=== PATIENT | male | born 1945 | race Caucasian/White ===

== ENCOUNTER → 2024-02-01 | Outpatient (CLI) | payer OTHER, SELFPAY ==
--- NOTE | 2024-02-01 14:57 | XR_ITS ---
Examination: PA lateral chest 2 views TECHNIQUE: Upright PA lateral chest 2 views Exam date and time: February 01, 2024 at 1502 hours Comparison May 24, 2013 INDICATIONS: Coughing beginning 2 months ago. FINDINGS: Scattered areas of parenchymal disease at the lung bases Normal heart size Blunting of the costophrenic angles Also parenchymal disease, minor in the right upper lobe IMPRESSION: Bilateral parenchymal disease primarily bibasilar most consistent with pneumonia Follow-up chest imaging recommended to document clearing
[2024-02-01 15:58] LABS: Basophils % (Auto) 0 % (0-2.5); Eosinophils # (Auto) 0.5 Thou/mm3 (0.0-0.5); Eosinophils % (Auto) 4 % (0-10); Hematocrit 34.5 % (41.0-53.0); Hemoglobin 11.1 g/dL (13.5-16.0); Immature Granulocytes % (Auto) 0 % (0-0); Immature Granulocytes Auto 0.04 Thou/mm3 (0.00-0.00); Lymphocytes % (Auto) 16 % (10-50); Mean Corpuscular HGB Conc 32.2 g/dl (31.0-37.0); Mean Corpuscular Hemoglobin 28.9 pg (25.0-35.0); Mean Corpuscular Volume 90 fL (80-100); Monocytes # (Auto) 1.2 Thou/mm3 (0.0-0.8); Monocytes % (Auto) 10 % (0-12); Neutrophils # (Auto) 8.8 Thou/mm3 (1.8-7.7); Neutrophils % (Auto) 70 % (37-80); Nucleated Red Blood Cell % 0 /100 WBC (0); Platelet Count 342 Thou/mm3 (140-440); RDW Standard Deviation 43.9 fL (35.1-43.9); Red Blood Count 3.84 Miln/mm3 (4.50-5.90); White Blood Count 12.6 Thou/mm3 (3.8-10.6)
== END | disposition home or self-care (01) ==
LOC: CDIM 14:45 → COPL 15:08
PROVIDERS: Referring Provider Family Medicine; Visit Provider Family Medicine
DX: J20.9 Acute bronchitis, unspecified (principal); D50.9 Iron deficiency anemia, unspecified
CPT/HCPCS: 36415; 71046; 85025

== ENCOUNTER → 2024-02-10 | Outpatient (CLI) | payer OTHER, SELFPAY ==
[2024-02-10 16:14] LABS: Basophils # (Auto) 0.1 Thou/mm3 (0.0-0.2); Basophils % (Auto) 0 % (0-2.5); Eosinophils # (Auto) 0.6 Thou/mm3 (0.0-0.5); Eosinophils % (Auto) 5 % (0-10); Hematocrit 35.8 % (41.0-53.0); Hemoglobin 11.5 g/dL (13.5-16.0); Immature Granulocytes % (Auto) 1 % (0-0); Immature Granulocytes Auto 0.09 Thou/mm3 (0.00-0.00); Lymphocytes # (Auto) 2.9 Thou/mm3 (1.0-4.8); Lymphocytes % (Auto) 22 % (10-50); Mean Corpuscular HGB Conc 32.1 g/dl (31.0-37.0); Mean Corpuscular Hemoglobin 28.5 pg (25.0-35.0); Mean Corpuscular Volume 89 fL (80-100); Monocytes % (Auto) 8 % (0-12); Neutrophils # (Auto) 8.5 Thou/mm3 (1.8-7.7); Neutrophils % (Auto) 64 % (37-80); Nucleated Red Blood Cell % 0 /100 WBC (0); Platelet Count 427 Thou/mm3 (140-440); RDW Standard Deviation 43.8 fL (35.1-43.9); Red Blood Count 4.03 Miln/mm3 (4.50-5.90); White Blood Count 13.2 Thou/mm3 (3.8-10.6)
== END | disposition home or self-care (01) ==
LOC: COPL 15:03
PROVIDERS: PCP Family Medicine; Referring Provider Family Medicine; Visit Provider Family Medicine
DX: J18.9 Pneumonia, unspecified organism (principal)
CPT/HCPCS: 36415; 85025

== ENCOUNTER → 2024-03-20 | Outpatient (CLI) | payer OTHER, SELFPAY ==
--- NOTE | 2024-03-20 12:39 | XR_ITS ---
Examination: PA lateral chest 2 views TECHNIQUE: Upright PA lateral chest 2 views Exam date and time: March 20, 2024 1334 hours INDICATIONS: Shortness of breath beginning 2 months ago. FINDINGS: COPD with moderate hyperexpansion Extensive interstitial disease throughout the lungs consistent with pneumonia, pulmonary fibrosis, clinical correlation advised Normal heart size IMPRESSION: Extensive interstitial disease again noted throughout the lungs, consistent with pneumonia or possibly pulmonary fibrosis Recommend high-resolution CT chest without contrast follow-up
== END | disposition home or self-care (01) ==
PROVIDERS: PCP Registered Nurse; Referring Provider Registered Nurse; Visit Provider Registered Nurse
DX: R91.8 Other nonspecific abnormal finding of lung field (principal)
CPT/HCPCS: 71046

== ENCOUNTER → 2024-03-24 | Outpatient (CLI) | payer OTHER, SELFPAY ==
--- NOTE | 2024-03-24 10:54 | XR_ITS ---
Examination: CT chest, without intravenous contrast. Sagittal and coronal 2-D reconstructions. Exam date and time: March 24, 2024 1114 hours INDICATIONS: Shortness of breath beginning one month ago, chest x-ray March 20, 2024 interstitial disease throughout the lungs CTDI:vol (mGy) 14.1 DLP: (mGycm) 448 Technique: Multiple 3.0 mm axial sections of the chest to been obtained. Bone and lung density settings are obtained. Sagittal and coronal 2-D reconstructions have been obtained. Low dose protocols were performed. One or more of the following dose reduction techniques were used; automated exposure control, adjustment of the mA and/or KV according to patient size, use of iterative reconstruction technique. Findings: Thoracic aortic calcification AP dimension ascending thoracic aorta 3.7 cm Pulmonary artery segments are not enlarged No paratracheal tracheobronchial or bronchopulmonary adenopathy Moderate to severe bilateral pulmonary fibrosis Multiple bilateral pulmonary nodules ranging in size from 2 to 14 mm No pneumonic infiltrates Mild enlargement cardiac contour No visualized liver or splenic lesion IMPRESSION: Moderate to severe bilateral pulmonary fibrosis Multiple bilateral pulmonary nodules ranging in size from 2 to 14 mm, with this study as baseline recommend 6 month follow-up CT chest without contrast
== END | disposition home or self-care (01) ==
PROVIDERS: PCP Family Medicine; Referring Provider Registered Nurse; Visit Provider Registered Nurse
DX: J84.10 Pulmonary fibrosis, unspecified (principal); R91.8 Other nonspecific abnormal finding of lung field
CPT/HCPCS: 71250

== ENCOUNTER → 2024-04-19 | Outpatient (CLI) | payer OTHER, SELFPAY ==
[2024-04-19 18:22] LABS: Amphetamine/Methamp Scrn,U Negative (Negative); Barbiturate Screen,Urine Negative (Negative); Benzodiazepines Screen,Urine Negative (Negative); Benzoylecgonine Screen, Ur Negative (Negative); Fentanyl Screen,Urine Negative (Negative); Opiate Screen,Urine Positive (Negative); THC Screen,Urine Negative (Negative)
== END | disposition home or self-care (01) ==
LOC: SLDO 17:16
PROVIDERS: PCP Registered Nurse; Referring Provider Registered Nurse; Visit Provider Registered Nurse
DX: Z79.891 Long term (current) use of opiate analgesic (principal)
CPT/HCPCS: 80307

== ENCOUNTER → 2024-07-06 | Outpatient (CLI) | payer OTHER, SELFPAY ==
--- NOTE | 2024-07-06 09:18 | XR_ITS ---
Examination: PA lateral chest 2 views TECHNIQUE: Upright PA lateral chest 2 views Exam date and time: July 06, 2024 1055 hours Comparison March 20, 2024 INDICATIONS: Difficulty breathing shortness of breath beginning January 2024. FINDINGS: Bilateral extensive interstitial disease again noted, consistent with pulmonary fibrosis Consider superimposed pneumonia left base Normal heart size IMPRESSION: Bilateral pulmonary fibrosis Superimposed pneumonia left base
== END | disposition home or self-care (01) ==
PROVIDERS: PCP Registered Nurse; Referring Provider Specialist; Visit Provider Specialist
DX: J84.10 Pulmonary fibrosis, unspecified (principal); J18.9 Pneumonia, unspecified organism
CPT/HCPCS: 71046

== ENCOUNTER → 2024-08-15 | Outpatient (CLI) | payer OTHER, SELFPAY ==
[2024-08-15 07:37] VITALS: PULSE 63; RESP 20; O2SAT 97
[2024-08-15 07:57] VITALS: PULSE 65; RESP 18; O2SAT 100
[2024-08-15 08:00] VITALS: PULSE 63
[2024-08-15] MEDS: ALBUTEROL RT 2.5 MG/0.5 ML NEBU INH (08:00)
== END | disposition home or self-care (01) ==
LOC: SRTX 07:00
PROVIDERS: PCP Registered Nurse; Referring Provider Specialist; Visit Provider Specialist
DX: R06.02 Shortness of breath (principal)
CPT/HCPCS: 94060; 94640; 94726; 94729

== ENCOUNTER → 2024-09-14 | Outpatient (CLI) | payer OTHER, SELFPAY ==
--- NOTE | 2024-09-14 08:30 | XR_ITS ---
Examination: CT chest, without intravenous contrast. Sagittal and coronal 2-D reconstructions. Exam date and time: September 14, 2024 0856 hours Comparison March 24, 2024 INDICATIONS: Multiple pulmonary nodules on CT chest March 24, 2024 CTDI:vol (mGy) 11.2 DLP: (mGycm) 402 Technique: Multiple 3.0 mm axial sections of the chest to been obtained. Bone and lung density settings are obtained. Sagittal and coronal 2-D reconstructions have been obtained. Low dose protocols were performed. One or more of the following dose reduction techniques were used; automated exposure control, adjustment of the mA and/or KV according to patient size, use of iterative reconstruction technique. Findings: No thoracic aortic aneurysmal dilatation Pulmonary artery segments are not enlarged. No pathologic lymphadenopathy. COPD with extensive bilateral airspace destruction and scarring throughout the lungs as well as dilated bronchi in the lower lung zones. There are multiple additional pulmonary nodules, at least 30 on the current examination compared to 18 on the prior study which may be more of function of technique Enlarging nodules compared with the prior study are not clearly identified No interval pneumonia No focal liver or splenic lesions Cholelithiasis IMPRESSION: More numerous subcentimeter pulmonary nodules on the current study, suggest continued 6 month follow-up CT chest without contrast
== END | disposition home or self-care (01) ==
PROVIDERS: Referring Provider Specialist; Visit Provider Specialist
DX: R91.8 Other nonspecific abnormal finding of lung field (principal)
CPT/HCPCS: 71250

== ENCOUNTER → 2024-09-28 | Outpatient (CLI) | payer OTHER, SELFPAY ==
[2024-09-28 16:31] LABS: Glucose Estimated Average 123 mg/dL (80-131); Hemoglobin A1C 5.9 % Hgb (4.8-6.0)
== END | disposition home or self-care (01) ==
PROVIDERS: PCP Family Medicine; Referring Provider Psychiatry & Neurology Neurology; Visit Provider Psychiatry & Neurology Neurology
DX: R20.2 Paresthesia of skin (principal)
CPT/HCPCS: 36415; 83036

== ENCOUNTER → 2024-10-17 | Outpatient (CLI) | payer OTHER, SELFPAY ==
[2024-10-17 08:11] LABS: Collection Type, Urine Clean Catch; Squamous Epithelial Cell,Urine 0 /hpf (0-5)
[2024-10-17 08:50] LABS: Basophils # (Auto) 0.0 Thou/mm3 (0.0-0.2); Basophils % (Auto) 0 % (0-2.5); Eosinophils # (Auto) 0.4 Thou/mm3 (0.0-0.5); Eosinophils % (Auto) 3 % (0-10); Hematocrit 36.6 % (41.0-53.0); Hemoglobin 12.0 g/dL (13.5-16.0); Immature Granulocytes Auto 0.04 Thou/mm3 (0.00-0.00); Lymphocytes # (Auto) 3.1 Thou/mm3 (1.0-4.8); Lymphocytes % (Auto) 29 % (10-50); Mean Corpuscular HGB Conc 32.8 g/dl (31.0-37.0); Mean Corpuscular Hemoglobin 30.5 pg (25.0-35.0); Mean Corpuscular Volume 93 fL (80-100); Monocytes # (Auto) 1.1 Thou/mm3 (0.0-0.8); Monocytes % (Auto) 10 % (0-12); Neutrophils # (Auto) 6.1 Thou/mm3 (1.8-7.7); Neutrophils % (Auto) 57 % (37-80); Nucleated Red Blood Cell # 0.00 Thou/mm3 (0.00-0.00); Nucleated Red Blood Cell % 0 /100 WBC (0); Platelet Count 274 Thou/mm3 (140-440); RDW Standard Deviation 47.8 fL (35.1-43.9); Red Blood Count 3.93 Miln/mm3 (4.50-5.90); White Blood Count 10.7 Thou/mm3 (3.8-10.6)
[2024-10-17 08:56] LABS: Bilirubin,Urine Negative (Negative); Blood,Urine Negative (Negative); Clarity,Urine Clear (Clear/Hazy); Color,Urine Yellow (Lt Yel-Yel); Culture Indicated,Urine Not Indicated; Glucose, Urine Negative (Negative); Ketones,Urine Negative (Negative); Leukocyte Esterase,Urine Negative (Negative); Nitrite,Urine Negative (Negative); PH,Urine 6.0 (5.0-7.0); Protein,Urine Trace (Neg - Trace); RBC,Urine < 1 /hpf (0-3); Specific Gravity,Urine 1.031 (1.001-1.035); Urobilinogen,Urine Negative mg/dL (0.0-1.0); WBC,Urine 1 /hpf (0-5)
[2024-10-17 08:58] LABS: Alanine Aminotransferase 12 U/L (10-49); Albumin, Serum 3.8 gm/dL (3.4-4.8); Albumin/Globulin Ratio 1.6 (1.2-2.2); Alkaline Phosphatase 65 U/L (46-116); Anion Gap 10 (7-16); Aspartate Amino Transferase 15 U/L (0-34); BUN/Creatinine Ratio 15 Ratio (12-20); Bilirubin,Total 0.3 mg/dL (0.3-1.2); Blood Urea Nitrogen 17 mg/dL (9-23); Calcium 8.9 mg/dL (8.3-10.6); Calcium (Corrected) 9.1 mg/dL (8.5-10.1); Carbon Dioxide 28.0 mMol/L (20.0-31.0); Cardiac Risk Estimate 3.3 RATIO (4.0-6.7); Chloride 108 mMol/L (98-107); Cholesterol 163 mg/dL (132-200); Creatinine (Component) 1.1 mg/dL (0.6-1.3); Globulin 2.4 gm/dL (2.3-3.5); Glucose 103 mg/dL (74-106); HDL Cholesterol 50 mg/dL (40-60); LDL Cholesterol,Calculated 90 mg/dL (0-130); Osmolality,Calculated 292 (275-295); Potassium 4.0 mMol/L (3.4-5.1); Sodium 146 mMol/L (136-145); Total Protein 6.2 gm/dL (5.7-8.2); Triglycerides 113 mg/dL (30-150); eGFR > 60 See Note
[2024-10-17 09:01] LABS: Prostate Specific Antigen 3.86 ng/mL (0-4.00)
[2024-10-17 09:04] LABS: Vitamin D 25 Hydroxy Total 40.0 ng/mL (7.3-40.2)
== END | disposition home or self-care (01) ==
LOC: COPL 07:13
PROVIDERS: PCP Family Medicine; Referring Provider Registered Nurse; Visit Provider Registered Nurse
DX: Z00.00 Encounter for general adult medical examination without abnormal findings (principal); E78.2 Mixed hyperlipidemia; N40.1 Benign prostatic hyperplasia with lower urinary tract symptoms; R73.9 Hyperglycemia, unspecified
CPT/HCPCS: 36415; 80053; 80061; 81001; 82306; 84153; 85025

== ENCOUNTER → 2024-10-18 | Outpatient (CLI) | payer OTHER, SELFPAY ==
--- NOTE | 2024-10-18 09:30 | XR_ITS ---
Examination: MRI cervical spine without intravenous contrast Date and time of exam: October 18, 2024 1106 hours INDICATIONS: Neck pain 9 months getting worse with numbness in the arms Technique: Multiple axial and sagittal sections of the cervical spine to been obtained. T2 weighted sagittal sections, TR 3, 270, TE 117 T1-weighted sagittal sections, TR 500, TE 11 T1-weighted axial sections, TR 607, TE 12, axial sections TR 18, TE 27 and T2 weighted transverse sections, TR 3920, TE 122. Findings: Retrograde displacement C5 relative to C6 4 mm No cervical fracture Diffuse cervical disc desiccation Advanced disc narrowing C5-C6 Moderate disc narrowing C6-C7 Diffuse cervical disc desiccation Minimal anterolisthesis C7 on T1 No localized enlargement cervical cord Atrophic changes involving the odontoid C2-C3 no disc protrusion C3-C4 advanced left neural foraminal stenosis C4-C5 advanced bilateral neural foraminal stenosis C5-C6 severe spinal stenosis, axial image 10, 6 mm osteophyte disc complex central paracentral severely indenting the cervical cord with advanced bilateral neural foraminal stenosis C6-C7 3 mm central subarticular osteophyte disc complex indenting the ventral margin cervical cord advanced bilateral neural foraminal stenosis C7-T1 no disc protrusion IMPRESSION: C5-C6 severe overall spinal stenosis including advanced bilateral neural foraminal stenosis C6-C7 moderate to severe overall spinal stenosis as above
== END | disposition home or self-care (01) ==
LOC: SMRI 09:25
PROVIDERS: PCP Family Medicine; Referring Provider Psychiatry & Neurology Neurology; Visit Provider Psychiatry & Neurology Neurology
DX: M48.02 Spinal stenosis, cervical region (principal)
CPT/HCPCS: 72141

== ENCOUNTER → 2024-11-20 | Outpatient (CLI) | payer OTHER, SELFPAY ==
--- NOTE | 2024-11-20 12:12 | XR_ITS ---
Examination:Left hip AP, lateral, AP pelvis 3 views Technique: Hip AP lateral, AP pelvis, 3 views Exam date and time:November 18, 2024 1211 hours INDICATIONS: Left hip pain beginning 3 months ago. FINDINGS: Severe narrowing left hip joint No hip fracture or dislocation Right hip hemiarthroplasty with satisfactory alignment IMPRESSION: Severe left hip osteoarthritis.
--- NOTE | 2024-11-20 12:12 | XR_ITS ---
Examination: Left knee 2 views TECHNIQUE: AP lateral left knee 2 views Date and time: November 20, 2024, 1227 hours INDICATIONS: Left knee pain beginning 3 months ago. FINDINGS: Mild to moderate tricompartment osteoarthritis No fracture or dislocation Prominent osteopenia IMPRESSION: Mild to moderate tricompartment osteoarthritis
== END | disposition home or self-care (01) ==
PROVIDERS: PCP Registered Nurse; Referring Provider Registered Nurse; Visit Provider Registered Nurse
DX: M16.12 Unilateral primary osteoarthritis, left hip (principal)
CPT/HCPCS: 73502; 73560

== ENCOUNTER → 2024-12-11 | Outpatient (CLI) | payer OTHER, SELFPAY ==
--- NOTE | 2024-12-11 15:42 | XR_ITS ---
Examination: PA lateral chest 2 views TECHNIQUE: Upright PA lateral chest 2 views Date and time: December 11, 2024, 1553 hours, comparison July 06, 2024 INDICATIONS: Shortness of breath today. FINDINGS: Interstitial disease again noted throughout the lungs Normal heart size The osseous structures are intact IMPRESSION: Moderate to severe bilateral pulmonary fibrosis
== END | disposition home or self-care (01) ==
PROVIDERS: PCP Registered Nurse; Referring Provider Specialist; Visit Provider Specialist
DX: J84.10 Pulmonary fibrosis, unspecified (principal)
CPT/HCPCS: 71046

== ENCOUNTER → 2025-01-12 | Outpatient (CLI) | payer OTHER, SELFPAY ==
--- NOTE | 2025-01-12 12:51 | XR_ITS ---
EXAMINATION: Cervical spine 4 views TECHNIQUE: AP, lateral, swimmer's lateral, coned AP odontoid cervical spine 4 views Date and time: January 12, 2025, 1314 hours INDICATIONS: Postop cervical spine surgery 1 week ago FINDINGS: Postop cervical fusion C5-C7 with satisfactory alignment Postop prevertebral mild soft tissue prominence Orthopedic hardware satisfactory position Intact odontoid No cervical fracture IMPRESSION: Postop cervical fusion C5-C7 with satisfactory alignment
== END | disposition home or self-care (01) ==
LOC: CDIM 12:44
PROVIDERS: PCP Orthopaedic Surgery; Referring Provider Orthopaedic Surgery; Visit Provider Orthopaedic Surgery
DX: M43.22 Fusion of spine, cervical region (principal); Z98.890 Other specified postprocedural states
CPT/HCPCS: 72040

== ENCOUNTER → 2025-02-21 | Outpatient (CLI) | payer OTHER, SELFPAY ==
--- NOTE | 2025-02-21 13:14 | XR_ITS ---
EXAMINATION: Cervical spine 3 views TECHNIQUE: AP, lateral, x2 Date and time: February 21, 2025, 1351 hours, comparison January 12, 2025 INDICATION: Patient fell 5 days ago, history neck fusion 2 months ago. FINDINGS: Cervical fusion C5-C7 with stable alignment No acute cervical fracture The odontoid appears intact There is no coned AP view of the cervical spine IMPRESSION: No acute cervical fracture
== END | disposition home or self-care (01) ==
PROVIDERS: PCP Registered Nurse; Referring Provider Orthopaedic Surgery; Visit Provider Orthopaedic Surgery
DX: M43.22 Fusion of spine, cervical region (principal); S14.5XXA Injury of cervical sympathetic nerves, initial encounter; W19.XXXA Unspecified fall, initial encounter
CPT/HCPCS: 72040